=== PATIENT | female | born 2000 | race Hispanic/Latino ===

== ENCOUNTER 2021-11-19 11:52 | Day surgery (SDC) | payer SELFPAY ==
[2021-11-19 12:21] VITALS: BMI 34.7
[2021-11-19] MEDS ORDERED: Lorazepam 2 MG/ML VIAL SLOW IVP PRN (12:53)
[2021-11-19] MEDS ORDERED: hydrALAZINE 20 MG/ML VIAL SLOW IVP PRN (12:59)
[2021-11-19 13:04] LABS: Creatinine, Urine 58.15 mg/dL (47-110)
[2021-11-19 13:56] LABS: #Monocytes 0.6 10x3/uL (0.0-1.1); #Neutrophils 4.9 10x3/uL (1.5-8.4); %Basophils 0.2 % (0.0-2.0); %Eosinophils 0.2 % (0.0-6.0); %Lymphocytes 16.1 % (18.0-47.0); %Monocytes 8.9 % (0.0-10.0); %Neutrophils 74.3 % (40.0-75.0); Hemoglobin 11.6 g/dL (12.0-15.5); Mean Corpuscular HGB CONC 34.5 g/dL (32.0-36.0); Mean Corpuscular Hemoglobin 30.4 pg (27.0-33.0); Mean Corpuscular Volume 88.2 fl (81.6-98.3); Mean Platelet Volume 10.7 fl (7.4-10.4); Platelet Count 260 10x3/uL (150-450); RBC Distribution Width 13.5 % (11.5-14.5); Red Blood Cell (RBC) Count 3.81 10x6/uL (3.90-5.03); White Blood Cell (WBC) Count 6.5 10x3/uL (3.5-10.5)
[2021-11-19 14:04] LABS: ALT (SGPT) 14 U/L (8-55); AST (SGOT) 23 U/L (5-34); Albumin 3.4 g/dL (3.5-5.0); Alkaline Phosphatase 129 U/L (40-100); Anion Gap 15 mmol/L (10-20); BUN (Urea Nitrogen) 10 mg/dL (7.0-18.7); Bilirubin, Total 0.3 mg/dL (0.2-1.2); Calc. Creatinine Clearance 191 mL/min (70-130); Carbon Dioxide 16 mmol/L (22-29); Chloride 109 mmol/L (98-107); Estimated GFR 131; Globulin 2.8 g/dL (2.4-3.5); Glucose 78 mg/dL (70-105); Potassium 4.2 mmol/L (3.5-5.1); Protein, Total 6.2 g/dL (6.0-8.3); Sodium 136 mmol/L (136-145)
== END 2021-11-19 17:30 | disposition home or self-care (01) ==
LOC: CSHLD/OP 11:52
PROVIDERS: ATTEND Family Medicine
DX: O99.891 Other specified diseases and conditions complicating pregnancy (principal); R03.0 Elevated blood-pressure reading, without diagnosis of hypertension; Z3A.38 38 weeks gestation of pregnancy
CPT/HCPCS: 36415; 80053; 82570; 84156; 85025

== ENCOUNTER 2021-11-23 11:21 | Inpatient (IN) | payer MEDICAID, OTHER, SELFPAY ==
[~2021-11-23 11:21] MED LIST: Bupivacaine HCl 0.5%/Epinephrine 1:200,000/PF 30 ml Vial ONE; Bupivacaine PF 0.5% 30 ML VIAL ONE
[2021-11-23 11:40] VITALS: BMI 34.9
[2021-11-23] MEDS ORDERED: hydrALAZINE 20 MG/ML VIAL SLOW IVP PRN ×3 (11:51→16:41)
[2021-11-23 12:44] LABS: #Monocytes 0.6 10x3/uL (0.0-1.1); #Neutrophils 4.1 10x3/uL (1.5-8.4); %Basophils 0.3 % (0.0-2.0); %Eosinophils 0.7 % (0.0-6.0); %Lymphocytes 20.5 % (18.0-47.0); %Monocytes 10.3 % (0.0-10.0); %Neutrophils 67.5 % (40.0-75.0); Hemoglobin 11.5 g/dL (12.0-15.5); Mean Corpuscular Hemoglobin 30.4 pg (27.0-33.0); Mean Platelet Volume 10.6 fl (7.4-10.4); Platelet Count 238 10x3/uL (150-450); RBC Distribution Width 13.5 % (11.5-14.5); Red Blood Cell (RBC) Count 3.78 10x6/uL (3.90-5.03); White Blood Cell (WBC) Count 6.1 10x3/uL (3.5-10.5)
[2021-11-23 12:55] LABS: ALT (SGPT) 12 U/L (8-55); AST (SGOT) 19 U/L (5-34); Albumin 3.3 g/dL (3.5-5.0); Alkaline Phosphatase 136 U/L (40-100); Anion Gap 13 mmol/L (10-20); BUN (Urea Nitrogen) 9 mg/dL (7.0-18.7); Bilirubin, Total 0.3 mg/dL (0.2-1.2); Calc. Creatinine Clearance 180 mL/min (70-130); Calcium 8.7 mg/dL (7.8-10.44); Carbon Dioxide 20 mmol/L (22-29); Chloride 111 mmol/L (98-107); Estimated GFR 129; Globulin 2.3 g/dL (2.4-3.5); Glucose 90 mg/dL (70-105); Potassium 4.2 mmol/L (3.5-5.1); Protein, Total 5.6 g/dL (6.0-8.3); Sodium 140 mmol/L (136-145)
[2021-11-23] MEDS ORDERED: Carboprost 250 MCG/ML AMP IM PRN (16:41)
[2021-11-23] MEDS ORDERED: NS w/ Oxytocin 30 units 500 ML IV SCH (16:41)
[2021-11-23] MEDS ORDERED: Lidocaine 1% (PF) 30 ML VIAL SC PRN (16:41)
[2021-11-23] MEDS ORDERED: HYDROcodone/Acetaminophen 5/325 mg Tablet PO PRN ×2 (16:41)
[2021-11-23] MEDS ORDERED: Ibuprofen 800 MG TAB PO PRN (16:41)
[2021-11-23] MEDS ORDERED: Methylergonovine 0.2 MG/ML VIAL IM PRN (16:41)
[2021-11-23] MEDS ORDERED: Acetaminophen 500 MG TAB PO PRN (16:41)
[2021-11-23] MEDS ORDERED: Misoprostol 200 MCG TAB PR PRN (16:41)
[2021-11-23] MEDS ORDERED: Ondansetron PF 4 MG/2 ML Vial IVP PRN ×2 (16:41→21:55)
[2021-11-23] MEDS ORDERED: Butorphanol Tartrate 1 MG/ML VIAL SLOW IVP PRN (16:41)
[2021-11-23] MEDS ORDERED: Diphenoxylate HCl/Atropine Tablet PO PRN ×2 (16:41)
[2021-11-23] MEDS ORDERED: Promethazine HCl 25 MG/ML VIAL IM PRN ×2 (16:41→21:55)
[2021-11-23] MEDS ORDERED: Penicillin G Potassium 5 MILL.UNITS in Sodium Chloride 0.9% 100 ML IVPB SCH (16:41)
[2021-11-23] MEDS ORDERED: Labetalol HCl 100 MG/20 ML VIAL SLOW IVP PRN ×3 (16:41)
[2021-11-23] MEDS ORDERED: Misoprostol 100 MCG TAB ONE (16:59)
[2021-11-23] MEDS ORDERED: Penicillin G Potassium 5 MILL.UNITS VIAL ONE (17:00)
[2021-11-23] MEDS: Misoprostol 100 MCG TAB VAG SCH ×2 (17:21→23:59)
[2021-11-23 17:52] LABS: Syphilis Antibody Nonreactive (Nonreactive); Syphilis Antibody Index 0.03 S/CO (<1.00 Non-Reactive)
[2021-11-23 17:53] LABS: HBSAg Index 0.19 S/CO (0-0.99); HIV (1/2) Antibody/Antigen Non-Reactive (NonReactive); HIV 1/2 INDEX 0.11 S/CO (<1.00); Hep B Surf Ag Non-Reactive S/CO (NonReactive)
[2021-11-23 19:26] LABS: SARS-CoV-2 NAA Rapid Test Not Detected (NotDetected)
[2021-11-23] MEDS ORDERED: Magnesium Sulfate 20 gm/500 ml 20 GM/500 ML BAG ONE (20:39)
[2021-11-23] MEDS ORDERED: Fentanyl 2 mcg/Bup 0.1% Cadd 100 ML ONE (21:07)
[2021-11-23] MEDS ORDERED: Calcium Gluc 4.6 MEQ/10 ML (100 MG/ML) SLOW IVP PRN (21:14)
[2021-11-23] MEDS ORDERED: Lactated Ringer's 500 ML IV PRN (21:55)
[2021-11-23] MEDS ORDERED: Moisturizing Cream (Eucerin) 113 GM JAR TOP PRN (21:55)
[2021-11-23] MEDS ORDERED: ePHEDrine Sulfate 50 MG/10 ML VIAL SLOW IVP PRN (21:55)
[2021-11-23] MEDS ORDERED: diphenhydrAMINE 50 MG/ML VIAL IVP PRN (21:55)
[2021-11-23] MEDS ORDERED: Naloxone HCl 0.4 mg/ml Vial IVP PRN ×2 (21:55)
[2021-11-23] MEDS: Penicillin G 2.5 MILL.units 2.5 MILL.UNITS in Premix Bag 1 BAG IVPB SCH (21:57)
[2021-11-23] MEDS ORDERED: Communication Order-Pharmacy FS SCH (22:00)
[2021-11-24] MEDS: Penicillin G 2.5 MILL.units 2.5 MILL.UNITS in Premix Bag 1 BAG IVPB SCH ×5 (01:34→18:06)
[2021-11-24] MEDS: Lactated Ringer's 1,000 ML IV SCH (01:35)
[2021-11-24] MEDS: Misoprostol 100 MCG TAB VAG SCH (04:09)
[2021-11-24] MEDS: Acetaminophen 325 MG TAB PO PRN (04:31)
[2021-11-24] MEDS: Fentanyl 2 mcg/Bupivacaine 0.1% Cassette 100 ML EPIDURAL SCH ×3 (04:31→18:59)
[2021-11-24] MEDS: Magnesium Sulfate 20 gm/500 ml 20 GM/500 ML BAG IVPB SCH ×2 (05:23→15:19)
[2021-11-24] MEDS ORDERED: Fentanyl 100 MCG/2 ML VIAL ONE ×3 (05:41→12:28)
[2021-11-24 16:57] LABS: #Monocytes 1.1 10x3/uL (0.0-1.1); #Neutrophils 13.5 10x3/uL (1.5-8.4); %Basophils 0.1 % (0.0-2.0); %Lymphocytes 4.6 % (18.0-47.0); %Monocytes 7.1 % (0.0-10.0); %Neutrophils 87.7 % (40.0-75.0); Hemoglobin 12.4 g/dL (12.0-15.5); Mean Corpuscular HGB CONC 34.5 g/dL (32.0-36.0); Mean Corpuscular Hemoglobin 30.8 pg (27.0-33.0); Mean Corpuscular Volume 89.1 fl (81.6-98.3); Mean Platelet Volume 10.3 fl (7.4-10.4); Platelet Count 267 10x3/uL (150-450); RBC Distribution Width 13.5 % (11.5-14.5); Red Blood Cell (RBC) Count 4.03 10x6/uL (3.90-5.03); White Blood Cell (WBC) Count 15.4 10x3/uL (3.5-10.5)
[2021-11-24 17:49] LABS: ALT (SGPT) 21 U/L (8-55); AST (SGOT) 30 U/L (5-34); Albumin 3.6 g/dL (3.5-5.0); Alkaline Phosphatase 157 U/L (40-100); Anion Gap 15 mmol/L (10-20); BUN (Urea Nitrogen) 8 mg/dL (7.0-18.7); Bilirubin, Total 0.4 mg/dL (0.2-1.2); Calc. Creatinine Clearance 165 mL/min (70-130); Calcium 4.7 mg/dL (7.8-10.44); Carbon Dioxide 15 mmol/L (22-29); Chloride 101 mmol/L (98-107); Estimated GFR 123; Glucose 119 mg/dL (70-105); Magnesium 7.1 mg/dL (1.7-2.2); Potassium 4.1 mmol/L (3.5-5.1); Protein, Total 6.6 g/dL (6.0-8.3); Sodium 127 mmol/L (136-145)
[2021-11-24] MEDS ORDERED: Lidocaine 1% (PF) 30 ML VIAL ONE (18:46)
[2021-11-24] MEDS ORDERED: Carboprost 250 MCG/ML AMP ONE (19:25)
[2021-11-24] MEDS ORDERED: Tranexamic Acid 1,000 MG/10 ML VIAL ONE (19:25)
[2021-11-24] MEDS ORDERED: Misoprostol 200 MCG TAB ONE (19:26)
[2021-11-24 20:24] LABS: Platelet Count 265 10x3/uL (150-450)
[2021-11-24 20:25] LABS: Hemoglobin 11.3 g/dL (12.0-15.5); Mean Corpuscular HGB CONC 35.1 g/dL (32.0-36.0); Mean Corpuscular Hemoglobin 31.1 pg (27.0-33.0); Mean Corpuscular Volume 88.7 fl (81.6-98.3); RBC Distribution Width 13.6 % (11.5-14.5); Red Blood Cell (RBC) Count 3.63 10x6/uL (3.90-5.03); White Blood Cell (WBC) Count 17.7 10x3/uL (3.5-10.5)
[2021-11-24 20:26] LABS: MDiff Complete? YES
[2021-11-24 20:29] LABS: ALT (SGPT) 17 U/L (8-55); AST (SGOT) 29 U/L (5-34); Albumin 2.8 g/dL (3.5-5.0); Alkaline Phosphatase 127 U/L (40-100); Anion Gap 13 mmol/L (10-20); BUN (Urea Nitrogen) 8 mg/dL (7.0-18.7); Bilirubin, Total 0.4 mg/dL (0.2-1.2); Calc. Creatinine Clearance 159 mL/min (70-130); Calcium 7.7 mg/dL (7.8-10.44); Carbon Dioxide 13 mmol/L (22-29); Chloride 104 mmol/L (98-107); Estimated GFR 117; Globulin 2.5 g/dL (2.4-3.5); Glucose 122 mg/dL (70-105); Magnesium 7.5 mg/dL (1.7-2.2); Potassium 3.9 mmol/L (3.5-5.1); Protein, Total 5.3 g/dL (6.0-8.3); Sodium 126 mmol/L (136-145)
[2021-11-24] MEDS ORDERED: diphenhydrAMINE 25 MG CAP PO PRN (21:32)
[2021-11-24] MEDS ORDERED: Boostrix 0.5 ML (Tdap) VIAL IM ONE (21:32)
[2021-11-24] MEDS ORDERED: Milk Of Magnesia 30 ML UDCUP PO PRN (21:32)
[2021-11-24] MEDS ORDERED: Preparation H Ointment 28 GM TUBE PR PRN (21:32)
[2021-11-24] MEDS ORDERED: Bisacodyl 10 MG SUPP PR PRN (21:32)
[2021-11-24] MEDS ORDERED: Promethazine HCl 25 MG/ML VIAL IM PRN (21:32)
[2021-11-24] MEDS ORDERED: hydrALAZINE 20 MG/ML VIAL SLOW IVP PRN (21:32)
[2021-11-24] MEDS ORDERED: Ondansetron PF 4 MG/2 ML Vial IVP PRN (21:32)
[2021-11-24 21:38] LABS: Lymphocytes 7 % (28-48); Monocytes 4 % (0-4); Neutrophil 89 % (31-61)
[2021-11-24 21:39] LABS: Platelet Morphology Comment PLT clumps seen-ADEQ; RBC Morphology Normal
[2021-11-24] MEDS: HYDROcodone/Acetaminophen 5/325 mg Tablet PO PRN (22:29)
[2021-11-24] MEDS ORDERED: Ibuprofen 800 MG TAB PO SCH (22:30)
[2021-11-24] MEDS ORDERED: NS w/ Oxytocin 30 units 500 ML IV SCH (23:00)
[2021-11-25] MEDS: HYDROcodone/Acetaminophen 5/325 mg Tablet PO PRN ×4 (02:31→19:25)
[2021-11-25 05:26] LABS: Hemoglobin 10.2 g/dL (12.0-15.5)
[2021-11-25] MEDS: Ibuprofen 800 MG TAB PO SCH ×3 (06:33→23:00)
[2021-11-25 07:04] LABS: RapidComm Collect By CBN; pH (Cord, venous) 7.314 (7.250-7.350)
[2021-11-25 08:18] LABS: ALT (SGPT) 14 U/L (8-55); AST (SGOT) 28 U/L (5-34); Albumin 2.7 g/dL (3.5-5.0); Alkaline Phosphatase 110 U/L (40-100); Anion Gap 14 mmol/L (10-20); BUN (Urea Nitrogen) 7 mg/dL (7.0-18.7); Bilirubin, Total 0.4 mg/dL (0.2-1.2); Calc. Creatinine Clearance 198 mL/min (70-130); Calcium 6.9 mg/dL (7.8-10.44); Carbon Dioxide 15 mmol/L (22-29); Chloride 103 mmol/L (98-107); Estimated GFR 132; Globulin 2.3 g/dL (2.4-3.5); Glucose 96 mg/dL (70-105); Potassium 3.8 mmol/L (3.5-5.1); Sodium 128 mmol/L (136-145)
[2021-11-25] MEDS: Ferrous Sulfate 325 MG TAB PO SCH (14:01)
[2021-11-25] MEDS: Docusate 100 MG CAP PO SCH (14:02)
[2021-11-25] MEDS: Prenatal Vitamin 1 TAB PO SCH (14:02)
[2021-11-26] MEDS: Lactated Ringer's 1,000 ML IV SCH ×3 (03:22→05:29)
[2021-11-26] MEDS: Ferrous Sulfate 325 MG TAB PO SCH ×3 (03:23→17:50)
[2021-11-26] MEDS: Docusate 100 MG CAP PO SCH ×3 (03:24→21:17)
[2021-11-26 04:06] LABS: Anion Gap 14 mmol/L (10-20); BUN (Urea Nitrogen) 8 mg/dL (7.0-18.7); Calc. Creatinine Clearance 186 mL/min (70-130); Calcium 7.2 mg/dL (7.8-10.44); Carbon Dioxide 18 mmol/L (22-29); Chloride 108 mmol/L (98-107); Estimated GFR 130; Glucose 94 mg/dL (70-105); Potassium 3.9 mmol/L (3.5-5.1); Sodium 136 mmol/L (136-145)
[2021-11-26] MEDS: Misoprostol 100 MCG TAB VAG SCH (05:32)
[2021-11-26] MEDS: Penicillin G 2.5 MILL.units 2.5 MILL.UNITS in Premix Bag 1 BAG IVPB SCH (05:32)
[2021-11-26] MEDS: Ibuprofen 800 MG TAB PO SCH ×3 (05:55→21:17)
[2021-11-26] MEDS: Acetaminophen 325 MG TAB PO PRN (09:30)
[2021-11-26] MEDS: Prenatal Vitamin 1 TAB PO SCH ×2 (09:33→09:35)
[2021-11-26] MEDS: HYDROcodone/Acetaminophen 5/325 mg Tablet PO PRN ×3 (09:34→17:48)
[2021-11-26] MEDS ORDERED: Benzocaine-Menthol 82.5 ML CAN TOP PRN (10:12)
[2021-11-27] MEDS: HYDROcodone/Acetaminophen 5/325 mg Tablet PO PRN ×3 (02:18→18:24)
[2021-11-27] MEDS: Ibuprofen 800 MG TAB PO SCH ×3 (05:27→22:08)
[2021-11-27] MEDS: Lactated Ringer's 1,000 ML IV SCH ×2 (06:01→07:34)
[2021-11-27] MEDS: Docusate 100 MG CAP PO SCH ×2 (07:42→22:08)
[2021-11-27] MEDS: Ferrous Sulfate 325 MG TAB PO SCH ×2 (07:42→18:09)
[2021-11-27] MEDS: Prenatal Vitamin 1 TAB PO SCH (07:42)
[2021-11-27] MEDS ORDERED: Furosemide 40 MG/4 ML VIAL SLOW IVP SCH (09:15)
[2021-11-28] MEDS: Ibuprofen 800 MG TAB PO SCH ×2 (04:58→13:54)
[2021-11-28] MEDS ORDERED: Furosemide 40 MG/4 ML VIAL SLOW IVP SCH (05:00)
[2021-11-28] MEDS: Ferrous Sulfate 325 MG TAB PO SCH ×2 (07:35→15:39)
[2021-11-28] MEDS: Lactated Ringer's 1,000 ML IV SCH ×2 (07:35→13:41)
[2021-11-28 10:24] VITALS: BP 133/73; TEMP 98.3
[2021-11-28] MEDS: Prenatal Vitamin 1 TAB PO SCH (10:32)
[2021-11-28] MEDS: HYDROcodone/Acetaminophen 5/325 mg Tablet PO PRN ×2 (10:32→15:51)
[2021-11-28] MEDS: Docusate 100 MG CAP PO SCH (10:32)
== END 2021-11-28 17:30 | disposition home or self-care (01) | DRG 806 ==
LOC: CSHLD/OP 11:21 → CSHLD 16:53 → CSHANTE 11-25 15:09
PROVIDERS: ADMIT Family Medicine; ATTEND Family Medicine
PROC: 3E0P7VZ Introduction of Hormone into Female Reproductive, Via Natural or Artificial Opening (ICD-10-PCS; 2021-11-23)
PROC: 10E0XZZ Delivery of Products of Conception, External Approach (ICD-10-PCS; principal; 2021-11-24)
PROC: 0HQ9XZZ Repair Perineum Skin, External Approach (ICD-10-PCS; 2021-11-24)
PROC: 30233N1 Transfusion of Nonautologous Red Blood Cells into Peripheral Vein, Percutaneous Approach (ICD-10-PCS; 2021-11-24)
PROC: 3E033VJ Introduction of Other Hormone into Peripheral Vein, Percutaneous Approach (ICD-10-PCS; 2021-11-24)
PROC: 10H07YZ Insertion of Other Device into Products of Conception, Via Natural or Artificial Opening (ICD-10-PCS; 2021-11-24)
PROC: 10907ZC Drainage of Amniotic Fluid, Therapeutic from Products of Conception, Via Natural or Artificial Opening (ICD-10-PCS; 2021-11-24)
DX: O14.14 Severe pre-eclampsia complicating childbirth (principal); E87.1 Hypo-osmolality and hyponatremia; Z37.0 Single live birth; O72.1 Other immediate postpartum hemorrhage; O99.824 Streptococcus B carrier state complicating childbirth; Z3A.39 39 weeks gestation of pregnancy; Z20.822 Contact with and (suspected) exposure to COVID-19; Z79.899 Other long term (current) drug therapy; O70.0 First degree perineal laceration during delivery; O76 Abnormality in fetal heart rate and rhythm complicating labor and delivery; R31.9 Hematuria, unspecified; O99.892 Other specified diseases and conditions complicating childbirth; O99.285 Endocrine, nutritional and metabolic diseases complicating the puerperium
CPT/HCPCS: 36415; 36430; 51702; 80048; 80053; 82570; 82805; 83735; 84156; 84550; 85014; 85018; 85025; 86780; 86850; 86900; 86901; 87340; 87389; 99285; J0360; J1940; J2540; J2590; J3475; J3490; J7120; P9016; U0002